=== PATIENT | female | born 1970 | race Caucasian/White ===

== ENCOUNTER 2016-09-25 09:57 | Day surgery (SDC) | payer BC ==
[2016-09-20 14:03] VITALS: BMI 18.8
[2016-09-25] MEDS ORDERED: PROPOFOL 20 ML ONE (10:24)
[2016-09-25] MEDS ORDERED: LIDOCAINE HCL 2% (50ML VIAL) INF ONE (13:00)
[2016-09-25 13:46] VITALS: BP 113/68; PULSE 58; TEMP 98.2
--- NOTE | 2016-09-25 21:06 | OP ---
DATE OF OPERATION: 09/25/2016 PREOPERATIVE DIAGNOSIS: Left thumb mass. POSTOPERATIVE DIAGNOSIS: Left thumb mass. OPERATIVE PROCEDURE: Left thumb mass excision. SURGEON: Booker Lo MD ANESTHESIA: Local. COMPLICATIONS: None. ESTIMATED BLOOD LOSS: Minimal. INDICATIONS FOR PROCEDURE: The patient is a female with the above finding, indicated for operative treatment. Risks, benefits, alternatives were discussed with patient at length. Proper informed consent was obtained. PROCEDURE: After proper identification of patient and correct operative site, patient brought to operating room and placed supine on operating room table. All bony prominences well padded. Local anesthesia was given, 2% lidocaine. Left upper extremity was prepped and draped in usual sterile fashion. A well-padded tourniquet placed, sterile prep. Esmarch bandage used to exsanguinate left upper extremity. Tourniquet was inflated to 250 mmHg. An oblique incision was made over the mass. The incision was taken sharply through the skin with blunt and sharp dissection in subcutaneous tissues. The mass was found to be a round structure, well circumscribed and easily removed. This was sent for pathological evaluation. The skin was repaired with 5-0 nylon sutures. Sterile dressings were applied. The patient was brought to the recovery room in stable condition. She tolerated the procedure well. BOOKER LO M.D. [id number]
--- NOTE | 2016-09-27 11:33 | PATH ---
Surgical Pathology Report Patient Name: JHOANA PUCKETT [facility]. Rec. #: [id number] /Age/Gender: 1970 (Age: 45) / F Account: [id number] Location: [facility] Taken: 09/25/2016 Received: 09/25/2016 Reported: 09/27/2016 Physicians: Booker Roth M.D. 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 Electronically Signed cJ Arcos M.D. Gross Description Received in formalin, labeled "left thumb mass," is a 0.4 x 0.4 x 0.3 cm morel, irregular portion of soft tissue. The specimen is bisected and entirely submitted in one cassette. 09/26/201609/26/2016
== END 2016-09-25 13:54 | disposition home or self-care (01) ==
LOC: FASU 09:57
PROVIDERS: ATTEND Orthopaedic Surgery Hand Surgery
PROC: 0JBJ0ZZ Excision of Right Hand Subcutaneous Tissue and Fascia, Open Approach (ICD-10-PCS; principal; 2016-09-25 12:00)
DX: D21.12 Benign neoplasm of connective and other soft tissue of left upper limb, including shoulder (principal)
CPT/HCPCS: 84703; 88305-TC